=== PATIENT | female | born 1955 | race Native Hawaiian/Other Pacific Islander ===

== ENCOUNTER 2018-09-25 14:12 | Outpatient (CLI) | payer OTHER ==
[2018-09-25 14:43] LABS: POTASSIUM 3.7 mmol/L (3.6-5.2)
== END 2018-09-25 19:24 | disposition home or self-care (01) ==
LOC: LABW 14:12
PROVIDERS: Internal Medicine Cardiovascular Disease
DX: I50.9 Heart failure, unspecified (principal); Z79.899 Other long term (current) drug therapy
CPT/HCPCS: 36415; 80048; 83880; 85651

== ENCOUNTER 2018-11-06 12:32 | Outpatient (CLI) | payer OTHER ==
[2018-11-06 12:52] LABS: PLATELET COUNT 407 K/uL (152-353)
[2018-11-06 13:00] LABS: POTASSIUM 3.1 mmol/L (3.6-5.2)
== END 2018-11-06 23:12 | disposition home or self-care (01) ==
LOC: LABW 12:32
PROVIDERS: Internal Medicine Cardiovascular Disease
DX: Z79.899 Other long term (current) drug therapy (principal)
CPT/HCPCS: 36415; 80048; 83880; 85027; 85651

== ENCOUNTER 2019-04-30 11:01 | Outpatient (CLI) | payer OTHER ==
[2019-04-30 11:17] LABS: PLATELET COUNT 377 K/uL (152-353)
[2019-04-30 11:28] LABS: POTASSIUM 3.8 mmol/L (3.6-5.2)
== END 2019-04-30 20:11 | disposition home or self-care (01) ==
LOC: LABW 11:01
PROVIDERS: Internal Medicine Cardiovascular Disease
DX: I50.9 Heart failure, unspecified (principal); Z79.899 Other long term (current) drug therapy
CPT/HCPCS: 36415; 80053; 80061; 83880; 85027